=== PATIENT | male | born 1995 | race Caucasian/White ===

== ENCOUNTER 2017-01-23 08:09 | Emergency (ER) | payer SELFPAY ==
[~2017-01-23] VITALS: Ht 162.6 cm; Wt 91.3 kg
[2017-01-23] MEDS ORDERED: ASPIRIN 81 MG TABLET CHEW PO ONE (08:30)
[2017-01-23] MEDS ORDERED: ASPIRIN 81 MG TABLET CHEW ONE (08:52)
[2017-01-23 09:04] LABS: BLOOD UREA NITROGEN 14 mg/dL (7-18)
[2017-01-23 09:11] LABS: IS PT STATUS REG ER OR PRE ER? YES
[2017-01-23 09:38] VITALS: BP 134/72
== END 2017-01-23 09:41 | disposition home or self-care (01) ==
LOC: ED 08:48
DX: R00.2 Palpitations (principal); F41.1 Generalized anxiety disorder
CPT/HCPCS: 36415; 71010; 80048; 82040; 84436; 84443; 84484; 85025; 93005

== ENCOUNTER 2020-02-10 20:09 | Emergency (ER) | payer SELFPAY ==
[~2020-02-10] VITALS: Ht 165.1 cm; Wt 95.0 kg
[2020-02-10 20:16] VITALS: BP 145/94
== END 2020-02-10 21:08 | disposition home or self-care (01) ==
LOC: ED 20:29
DX: B34.9 Viral infection, unspecified (principal)
CPT/HCPCS: 71045; 99283